=== PATIENT | male | born 1955 | race Caucasian/White ===

== ENCOUNTER 2020-06-20 10:27 | Inpatient (IN) | payer MEDICARE ==
[2020-06-15 14:11] LABS: BASOPHILS # (AUTO) 0.1 (0.0-0.1); BASOPHILS % 1.2 % (0.0-1.0); EOSINOPHILS # (AUTO) 0.2 (0.0-0.4); EOSINOPHILS % 2.2 % (0.0-6.0); HEMATOCRIT 36.8 % (38.2-49.6); HEMOGLOBIN 12.5 g/dL (14.0-18.0); LYMPHOCYTES # (AUTO) 0.6 (1.0-3.2); LYMPHOCYTES % 7.2 % (18.0-39.1); MEAN CORPUSCULAR HEMOGLOBIN 33.2 pg (28-32); MEAN CORPUSCULAR VOLUME 97.9 fL (81-99); MONOCYTES # (AUTO) 0.9 (0.2-0.8); NEUTROPHILS # (AUTO) 6.7 (2.1-6.9); PLATELET COUNT 170 x10e3/uL (140-360); RED BLOOD COUNT 3.76 x10e6/uL (4.3-5.7); RED CELL DISTRIBUTION WIDTH 12.7 % (11.7-14.4)
[2020-06-15 14:31] LABS: ALBUMIN 3.3 g/dL (3.5-5.0); ANION GAP 16.2 mmol/L (8-16); CREATININE, SERUM 2.27 mg/dL (0.72-1.25); POTASSIUM 4.2 mmol/L (3.5-5.1)
[~2020-06-20] VITALS: Ht 170.2 cm; Wt 81.6 kg
[2020-06-20] VITALS (11 sets, daily range): BP systolic 105–174; BP diastolic 76–114
[~2020-06-20 10:27] MED LIST: ATORVASTATIN CA20 MG PO; BENADRYL25 M1 PO; ENTRESTO 24 MG1 EACH PO; ESSIAC TONIC PO; GLIMEPIRIDE2 MG PO; MELATONIN3 M1 PO; METOPROLOL SUCC50 MG PO; TORSEMIDE20 MG PO; TURMERIC538 MG PO; VITAMIN C500 MG PO
[2020-06-20] MEDS ORDERED: DIPHENHYDRAMINE HCL 25 MG CAP ONE (10:54)
[2020-06-20] MEDS ORDERED: ALPRAZOLAM 0.5 MG TAB ONE (10:54)
[2020-06-20] MEDS ORDERED: SODIUM CHLORIDE 0.9% 1000ML 1,000 ML ONE ×2 (10:57→12:14)
[2020-06-20] MEDS ORDERED: MIDAZOLAM HCL 2 MG/2 ML VIAL ONE (12:13)
[2020-06-20] MEDS ORDERED: FENTANYL CITRATE/PF 100MCG/2 ML INJ ONE (12:14)
[2020-06-20] MEDS ORDERED: LIDOCAINE HCL 2% LOCAL 20 ML VIAL ONE (12:14)
[2020-06-20] MEDS ORDERED: IOPAMIDOL 370 MG/ML 200 ML INFUS..BTL INJ ONE (12:14)
[2020-06-20] MEDS ORDERED: HEPARIN SOD/SOD CHLORIDE 2,000 ML ONE (12:14)
[2020-06-20] MEDS ORDERED: ACETAMINOPHEN 325 MG TAB PO PRN (14:45)
[2020-06-20] MEDS ORDERED: ONDANSETRON HCL INJ 2MG/ML 2ML 2 MG/ML VIAL IV PRN (14:45)
[2020-06-20] MEDS ORDERED: HYDROCODONE/APAP 5MG-325MG TAB PO PRN (14:45)
[2020-06-20] MEDS ORDERED: MORPHINE SULFATE INJ 4 MG/ML INJ 1ML IV PRN (14:45)
[2020-06-20] MEDS ORDERED: GLIMEPIRIDE 2 MG TAB PO PRN (14:45)
[2020-06-20] MEDS ORDERED: HYDRALAZINE HCL 20 MG/ML VIAL ONE (15:17)
[2020-06-20] MEDS: METOPROLOL SUCCINATE 50 MG TAB XL PO SCH (20:45)
[2020-06-20] MEDS: MELATONIN 5 MG TABLET PO SCH (20:45)
[2020-06-20] MEDS: FUROSEMIDE INJ 10 MG/ML 4 ML VIAL IV SCH (20:45)
[2020-06-20] MEDS ORDERED: ZOLPIDEM TARTRATE 5 MG TAB PO PRN (21:00)
[2020-06-21] VITALS (14 sets, daily range): BP systolic 133–168; BP diastolic 83–105
[2020-06-21 05:40] LABS: BASOPHILS # (AUTO) 0.1 (0.0-0.1); BASOPHILS % 0.9 % (0.0-1.0); EOSINOPHILS # (AUTO) 0.2 (0.0-0.4); EOSINOPHILS % 2.4 % (0.0-6.0); HEMATOCRIT 35.9 % (38.2-49.6); HEMOGLOBIN 12.4 g/dL (14.0-18.0); LYMPHOCYTES # (AUTO) 0.5 (1.0-3.2); LYMPHOCYTES % 6.6 % (18.0-39.1); MEAN CORPUSCULAR HGB CONC 34.5 g/dL (31-35); MEAN CORPUSCULAR VOLUME 98.4 fL (81-99); MONOCYTES # (AUTO) 0.7 (0.2-0.8); MONOCYTES % 9.3 % (4.4-11.3); NEUTROPHILS # (AUTO) 6.1 (2.1-6.9); NEUTROPHILS % 80.4 % (38.7-80.0); PLATELET COUNT 147 x10e3/uL (140-360); RED BLOOD COUNT 3.65 x10e6/uL (4.3-5.7); RED CELL DISTRIBUTION WIDTH 12.8 % (11.7-14.4)
[2020-06-21 06:03] LABS: ALBUMIN 2.9 g/dL (3.5-5.0); ALBUMIN/GLOBULIN RATIO 0.9 (0.8-2.0); ANION GAP 14.6 mmol/L (8-16); CALCIUM 8.9 mg/dL (8.4-10.2); CHOL/HDL RATIO 1.9 (3.9-4.7); CREATININE, SERUM 2.11 mg/dL (0.72-1.25); POTASSIUM 3.6 mmol/L (3.5-5.1)
[2020-06-21] MEDS: FUROSEMIDE INJ 10 MG/ML 4 ML VIAL IV SCH ×3 (08:16→21:35)
[2020-06-21] MEDS: ATORVASTATIN 20 MG TAB PO SCH (08:16)
[2020-06-21] MEDS: ASCORBIC ACID 500 MG TAB PO SCH (08:17)
[2020-06-21] MEDS ORDERED: FENTANYL CITRATE/PF 100MCG/2 ML INJ ONE (12:21)
[2020-06-21] MEDS ORDERED: LIDOCAINE HCL 2% LOCAL 20 ML VIAL ONE (12:21)
[2020-06-21] MEDS ORDERED: MIDAZOLAM HCL 2 MG/2 ML VIAL ONE ×2 (12:21→13:10)
[2020-06-21] MEDS ORDERED: SODIUM CHLORIDE 0.9% 500ML 500 ML ONE (12:22)
[2020-06-21] MEDS ORDERED: VANCOMYCIN 1GM/NS 250 ML 500 ML ONE (12:22)
[2020-06-21] MEDS ORDERED: SODIUM CHLORIDE 0.9% 1000ML 2,000 ML ONE (12:22)
[2020-06-21] MEDS ORDERED: GENTAMICIN SULFATE 40 MG/ML 2 ML VIAL ONE (12:56)
[2020-06-21] MEDS: MELATONIN 5 MG TABLET PO SCH (21:35)
[2020-06-21] MEDS: METOPROLOL SUCCINATE 50 MG TAB XL PO SCH (21:36)
[2020-06-22 01:02] VITALS: BP 149/96
[2020-06-22 05:05] VITALS: BP 153/112
[2020-06-22 07:53] VITALS: BP 156/100
[2020-06-22 08:01] VITALS: BP 156/100
[2020-06-22] MEDS: ATORVASTATIN 20 MG TAB PO SCH (08:14)
[2020-06-22] MEDS: FUROSEMIDE INJ 10 MG/ML 4 ML VIAL IV SCH (08:14)
[2020-06-22] MEDS: ASCORBIC ACID 500 MG TAB PO SCH (08:14)
[2020-06-22 11:23] VITALS: BP 152/92
[2020-06-22 15:24] VITALS: BP 135/91
== END 2020-06-22 17:51 | disposition home or self-care (01) | DRG 222 ==
LOC: CATH LAB 10:27 → MED/SURG2 17:23
PROVIDERS: ADMIT Internal Medicine Interventional Cardiology; ATTEND Internal Medicine Interventional Cardiology
PROC: 4A023N7 Measurement of Cardiac Sampling and Pressure, Left Heart, Percutaneous Approach (ICD-10-PCS; principal; 2020-06-20)
PROC: B2111ZZ Fluoroscopy of Multiple Coronary Arteries using Low Osmolar Contrast (ICD-10-PCS; 2020-06-20)
PROC: 0JH608Z Insertion of Defibrillator Generator into Chest Subcutaneous Tissue and Fascia, Open Approach (ICD-10-PCS; 2020-06-21)
PROC: 02HK3KZ Insertion of Defibrillator Lead into Right Ventricle, Percutaneous Approach (ICD-10-PCS; 2020-06-21)
DX: I11.0 Hypertensive heart disease with heart failure (principal); J96.01 Acute respiratory failure with hypoxia; I25.110 Atherosclerotic heart disease of native coronary artery with unstable angina pectoris; E11.9 Type 2 diabetes mellitus without complications; E66.9 Obesity, unspecified; I50.43 Acute on chronic combined systolic (congestive) and diastolic (congestive) heart failure; Z68.28 Body mass index [BMI] 28.0-28.9, adult; Z79.84 Long term (current) use of oral hypoglycemic drugs
CPT/HCPCS: 33249; 36415; 71045; 80053; 80061; 82948; 85025; 93306; 93454; 99152; 99153; C1722; C1777; C1887; J0360; J1580; J1940; J2001; J2250; J3010; J3370; J7030; J7040; Q9967; U0002

== ENCOUNTER → 2020-08-10 | Outpatient (CLI) | payer MEDICARE ==
[~2020-08-10] MED LIST changes: +FUROSEMIDE40 MG PO; +SODIUM CHLORIDE1 GM PO
[2020-08-10 12:43] LABS: BASOPHILS # (AUTO) 0.1 (0.0-0.1); BASOPHILS % 1.5 % (0.0-1.0); EOSINOPHILS # (AUTO) 0.2 (0.0-0.4); EOSINOPHILS % 4.1 % (0.0-6.0); HEMATOCRIT 30.3 % (38.2-49.6); HEMOGLOBIN 10.7 g/dL (14.0-18.0); LYMPHOCYTES # (AUTO) 0.5 (1.0-3.2); LYMPHOCYTES % 9.9 % (18.0-39.1); MEAN CORPUSCULAR HEMOGLOBIN 33.9 pg (28-32); MEAN CORPUSCULAR HGB CONC 35.3 g/dL (31-35); MEAN CORPUSCULAR VOLUME 95.9 fL (81-99); MONOCYTES # (AUTO) 0.5 (0.2-0.8); MONOCYTES % 10.3 % (4.4-11.3); NEUTROPHILS # (AUTO) 3.4 (2.1-6.9); NEUTROPHILS % 73.6 % (38.7-80.0); PLATELET COUNT 130 x10e3/uL (140-360); RED BLOOD COUNT 3.16 x10e6/uL (4.3-5.7); RED CELL DISTRIBUTION WIDTH 14.2 % (11.7-14.4)
[2020-08-10 13:07] LABS: ALBUMIN 3.6 g/dL (3.5-5.0); ANION GAP 16.2 mmol/L (8-16); CALCIUM 8.9 mg/dL (8.4-10.2); CREATININE, SERUM 3.5 mg/dL (0.72-1.25); POTASSIUM 4.2 mmol/L (3.5-5.1)
== END ==
LOC: DX 15:47 → EDSTATUS 08-15 13:00
PROVIDERS: ATTEND Internal Medicine Interventional Cardiology
DX: Z01.812 Encounter for preprocedural laboratory examination (principal); Z20.822 Contact with and (suspected) exposure to COVID-19; I25.10 Atherosclerotic heart disease of native coronary artery without angina pectoris
CPT/HCPCS: 36415; 80053; 83880; 85025; U0002

== ENCOUNTER → 2020-08-31 | Outpatient (CLI) | payer MEDICARE ==
[~2020-08-31] MED LIST changes: +COLACE100 MG PO; +Collagenase TP; +FLOMAX0.4 MG PO; +TYLENOL # 31 EA PO
[2020-08-31 12:09] LABS: BASOPHILS # (AUTO) 0.1 (0.0-0.1); BASOPHILS % 1.1 % (0.0-1.0); EOSINOPHILS # (AUTO) 0.2 (0.0-0.4); EOSINOPHILS % 3.5 % (0.0-6.0); HEMATOCRIT 28.3 % (38.2-49.6); HEMOGLOBIN 10.3 g/dL (14.0-18.0); LYMPHOCYTES # (AUTO) 0.4 (1.0-3.2); LYMPHOCYTES % 6.6 % (18.0-39.1); MEAN CORPUSCULAR HEMOGLOBIN 34.3 pg (28-32); MEAN CORPUSCULAR HGB CONC 36.4 g/dL (31-35); MEAN CORPUSCULAR VOLUME 94.3 fL (81-99); MONOCYTES # (AUTO) 0.7 (0.2-0.8); MONOCYTES % 13.2 % (4.4-11.3); NEUTROPHILS # (AUTO) 4.1 (2.1-6.9); NEUTROPHILS % 75.2 % (38.7-80.0); PLATELET COUNT 184 x10e3/uL (140-360); RED CELL DISTRIBUTION WIDTH 14.6 % (11.7-14.4)
[2020-08-31 12:31] LABS: ALBUMIN 3.8 g/dL (3.5-5.0); ALBUMIN/GLOBULIN RATIO 1.1 (0.8-2.0); ANION GAP 16.8 mmol/L (8-16); CREATININE, SERUM 2.23 mg/dL (0.72-1.25); POTASSIUM 3.8 mmol/L (3.5-5.1)
== END | disposition home or self-care (01) ==
LOC: LAB 14:23 → EDSTATUS 09-05 15:00
PROVIDERS: ATTEND Internal Medicine Interventional Cardiology
DX: Z01.812 Encounter for preprocedural laboratory examination (principal); I25.10 Atherosclerotic heart disease of native coronary artery without angina pectoris
CPT/HCPCS: 36415; 80053; 83880; 85025

== ENCOUNTER 2020-09-05 17:25 | Inpatient (IN) | payer MEDICARE ==
[~2020-09-05] VITALS: Ht 170.2 cm; Wt 89.5 kg
[~2020-09-05 17:25] MED LIST changes: -COLACE100 MG PO; -Collagenase TP; -FLOMAX0.4 MG PO; -FUROSEMIDE40 MG PO; -SODIUM CHLORIDE1 GM PO; -TYLENOL # 31 EA PO
[2020-09-05] MEDS ORDERED: ASPIRIN 81 MG CHEW TAB PO ONE (18:45)
[2020-09-05 19:00] LABS: BASOPHILS # (AUTO) 0.1 (0.0-0.1); BASOPHILS % 1.6 % (0.0-1.0); EOSINOPHILS # (AUTO) 0.1 (0.0-0.4); EOSINOPHILS % 2.4 % (0.0-6.0); HEMATOCRIT 27.3 % (38.2-49.6); HEMOGLOBIN 9.2 g/dL (14.0-18.0); LYMPHOCYTES # (AUTO) 0.4 (1.0-3.2); LYMPHOCYTES % 7.5 % (18.0-39.1); MEAN CORPUSCULAR HEMOGLOBIN 34.1 pg (28-32); MEAN CORPUSCULAR HGB CONC 33.7 g/dL (31-35); MEAN CORPUSCULAR VOLUME 101.1 fL (81-99); MONOCYTES # (AUTO) 0.6 (0.2-0.8); MONOCYTES % 10.7 % (4.4-11.3); NEUTROPHILS # (AUTO) 4.5 (2.1-6.9); NEUTROPHILS % 77.3 % (38.7-80.0); PLATELET COUNT 164 x10e3/uL (140-360); RED CELL DISTRIBUTION WIDTH 15.6 % (11.7-14.4)
[2020-09-05 19:24] LABS: ALBUMIN 3.9 g/dL (3.5-5.0); ALBUMIN/GLOBULIN RATIO 1.2 (0.8-2.0); ANION GAP 17.9 mmol/L (8-16); CALCIUM 9.6 mg/dL (8.4-10.2); CREATININE, SERUM 2.98 mg/dL (0.72-1.25); POTASSIUM 3.9 mmol/L (3.5-5.1)
[2020-09-05 19:31] LABS: CREATINE KINASE MB 8.2 ng/mL (0-5.0)
[2020-09-05] MEDS ORDERED: ONDANSETRON HCL INJ 2MG/ML 2ML 2 MG/ML VIAL IV PRN (21:30)
[2020-09-05] MEDS: FUROSEMIDE INJ 10 MG/ML 4 ML VIAL IV SCH (23:04)
[2020-09-06] VITALS (9 sets, daily range): BP systolic 122–151; BP diastolic 74–102
[2020-09-06] MEDS ORDERED: SODIUM CHLORIDE1 GM PO (00:49)
[2020-09-06] MEDS ORDERED: FUROSEMIDE40 MG PO (00:49)
[2020-09-06] MEDS: TRAMADOL HCL 50 MG TAB PO PRN ×3 (01:11→16:27)
[2020-09-06] MEDS ORDERED: MELATONIN 5 MG TABLET PO PRN (01:30)
[2020-09-06 05:21] LABS: BASOPHILS # (AUTO) 0.1 (0.0-0.1); BASOPHILS % 1.6 % (0.0-1.0); EOSINOPHILS # (AUTO) 0.1 (0.0-0.4); EOSINOPHILS % 2.3 % (0.0-6.0); HEMATOCRIT 26.7 % (38.2-49.6); HEMOGLOBIN 9.2 g/dL (14.0-18.0); LYMPHOCYTES # (AUTO) 0.4 (1.0-3.2); LYMPHOCYTES % 6.6 % (18.0-39.1); MEAN CORPUSCULAR HEMOGLOBIN 34.5 pg (28-32); MEAN CORPUSCULAR HGB CONC 34.5 g/dL (31-35); MONOCYTES # (AUTO) 0.6 (0.2-0.8); MONOCYTES % 10.5 % (4.4-11.3); NEUTROPHILS # (AUTO) 4.4 (2.1-6.9); NEUTROPHILS % 78.5 % (38.7-80.0); PLATELET COUNT 144 x10e3/uL (140-360); RED BLOOD COUNT 2.67 x10e6/uL (4.3-5.7); RED CELL DISTRIBUTION WIDTH 15.2 % (11.7-14.4)
[2020-09-06 05:48] LABS: ALBUMIN 3.6 g/dL (3.5-5.0); ALBUMIN/GLOBULIN RATIO 1.1 (0.8-2.0); ANION GAP 15.7 mmol/L (8-16); CALCIUM 9.2 mg/dL (8.4-10.2); CREATININE, SERUM 2.96 mg/dL (0.72-1.25); POTASSIUM 3.7 mmol/L (3.5-5.1)
[2020-09-06] MEDS: INSULIN REGULAR, HUMAN 100 UNIT/1 ML SQ SCH ×4 (07:30→21:00)
[2020-09-06] MEDS: FUROSEMIDE INJ 10 MG/ML 4 ML VIAL IV SCH ×2 (10:00→21:59)
[2020-09-06] MEDS ORDERED: HYDRALAZINE HCL 20 MG/ML VIAL IV PRN (16:30)
[2020-09-06] MEDS ORDERED: GLIMEPIRIDE 2 MG TAB PO SCH (16:45)
[2020-09-06] MEDS: MELATONIN 5 MG TABLET PO SCH (21:59)
[2020-09-06] MEDS: DIPHENHYDRAMINE HCL 25 MG CAP PO SCH (21:59)
[2020-09-06] MEDS: SODIUM CHLORIDE 1 GM TAB PO SCH (22:00)
[2020-09-06] MEDS: METOPROLOL SUCCINATE 50 MG TAB XL PO SCH (22:00)
[2020-09-07] VITALS (8 sets, daily range): BP systolic 118–142; BP diastolic 62–90
[2020-09-07 06:13] LABS: BASOPHILS # (AUTO) 0.1 (0.0-0.1); BASOPHILS % 1.3 % (0.0-1.0); EOSINOPHILS # (AUTO) 0.2 (0.0-0.4); EOSINOPHILS % 2.9 % (0.0-6.0); HEMATOCRIT 28.3 % (38.2-49.6); HEMOGLOBIN 9.4 g/dL (14.0-18.0); LYMPHOCYTES # (AUTO) 0.4 (1.0-3.2); LYMPHOCYTES % 5.8 % (18.0-39.1); MEAN CORPUSCULAR HEMOGLOBIN 34.6 pg (28-32); MEAN CORPUSCULAR HGB CONC 33.2 g/dL (31-35); MONOCYTES # (AUTO) 0.7 (0.2-0.8); MONOCYTES % 9.5 % (4.4-11.3); NEUTROPHILS # (AUTO) 5.6 (2.1-6.9); NEUTROPHILS % 80.1 % (38.7-80.0); PLATELET COUNT 148 x10e3/uL (140-360); RED BLOOD COUNT 2.72 x10e6/uL (4.3-5.7); RED CELL DISTRIBUTION WIDTH 15.5 % (11.7-14.4)
[2020-09-07 06:36] LABS: CALCIUM 9.1 mg/dL (8.4-10.2); CREATININE, SERUM 3.15 mg/dL (0.72-1.25); MAGNESIUM 2.3 MG/DL (1.3-2.1); PHOSPHORUS 4.2 MG/DL (2.3-4.7)
[2020-09-07 06:57] LABS: THYROID STIMULATING HORMONE 27.517 uIU/mL (0.350-4.940)
[2020-09-07] MEDS: INSULIN REGULAR, HUMAN 100 UNIT/1 ML SQ SCH ×4 (07:30→21:00)
[2020-09-07] MEDS: COLLAGENASE 5 GM TUBE TP SCH (08:50)
[2020-09-07] MEDS: TRAMADOL HCL 50 MG TAB PO PRN ×4 (08:50→18:34)
[2020-09-07] MEDS: FUROSEMIDE INJ 10 MG/ML 4 ML VIAL IV SCH ×2 (08:50→22:00)
[2020-09-07] MEDS: ATORVASTATIN 20 MG TAB PO SCH (08:50)
[2020-09-07] MEDS: SODIUM CHLORIDE 1 GM TAB PO SCH ×3 (08:50→22:06)
[2020-09-07] MEDS: BALSAM PERU/CASTOR OIL 60 GM OINT...G. TP SCH (08:50)
[2020-09-07] MEDS ORDERED: ACETAMINOPHEN/CODEINE 300MG - 30MG TAB PO ONE (11:00)
[2020-09-07] MEDS ORDERED: FUROSEMIDE INJ 10 MG/ML 4 ML VIAL IV ONE (17:00)
[2020-09-07] MEDS: ACETAMINOPHEN/CODEINE 300MG - 30MG TAB PO PRN (20:14)
[2020-09-07] MEDS: MELATONIN 5 MG TABLET PO SCH (22:06)
[2020-09-07] MEDS: DIPHENHYDRAMINE HCL 25 MG CAP PO SCH (22:06)
[2020-09-07] MEDS: METOPROLOL SUCCINATE 50 MG TAB XL PO SCH (22:07)
[2020-09-08] VITALS (8 sets, daily range): BP systolic 116–144; BP diastolic 80–98
[2020-09-08 06:14] LABS: BASOPHILS # (AUTO) 0.1 (0.0-0.1); BASOPHILS % 1.6 % (0.0-1.0); EOSINOPHILS # (AUTO) 0.3 (0.0-0.4); EOSINOPHILS % 4.6 % (0.0-6.0); HEMATOCRIT 28.9 % (38.2-49.6); HEMOGLOBIN 9.7 g/dL (14.0-18.0); LYMPHOCYTES # (AUTO) 0.6 (1.0-3.2); MEAN CORPUSCULAR HEMOGLOBIN 35.1 pg (28-32); MEAN CORPUSCULAR HGB CONC 33.6 g/dL (31-35); MEAN CORPUSCULAR VOLUME 104.7 fL (81-99); MONOCYTES # (AUTO) 0.7 (0.2-0.8); MONOCYTES % 10.9 % (4.4-11.3); NEUTROPHILS # (AUTO) 4.9 (2.1-6.9); NEUTROPHILS % 73.2 % (38.7-80.0); PLATELET COUNT 153 x10e3/uL (140-360); RED BLOOD COUNT 2.76 x10e6/uL (4.3-5.7)
[2020-09-08 06:40] LABS: ANION GAP 17.3 mmol/L (8-16); CALCIUM 9.5 mg/dL (8.4-10.2); CREATININE, SERUM 3.86 mg/dL (0.72-1.25); MAGNESIUM 2.3 MG/DL (1.3-2.1); POTASSIUM 4.3 mmol/L (3.5-5.1)
[2020-09-08] MEDS: INSULIN REGULAR, HUMAN 100 UNIT/1 ML SQ SCH ×4 (07:30→20:35)
[2020-09-08] MEDS: FUROSEMIDE INJ 10 MG/ML 4 ML VIAL IV SCH (09:02)
[2020-09-08] MEDS: ATORVASTATIN 20 MG TAB PO SCH (09:02)
[2020-09-08] MEDS: BALSAM PERU/CASTOR OIL 60 GM OINT...G. TP SCH (09:04)
[2020-09-08] MEDS: SODIUM CHLORIDE 1 GM TAB PO SCH ×3 (09:05→21:20)
[2020-09-08] MEDS: COLLAGENASE 5 GM TUBE TP SCH (09:05)
[2020-09-08] MEDS: TRAMADOL HCL 50 MG TAB PO PRN ×2 (10:29→17:55)
[2020-09-08] MEDS ORDERED: ONDANSETRON HCL 4 MG ORAL DISINTEGRATING TAB PO PRN (13:30)
[2020-09-08] MEDS ORDERED: SODIUM CHLORIDE 0.9% 500ML 500 ML ONE (13:39)
[2020-09-08] MEDS: DEXTROSE 50% SYRINGE 50 ML IV PRN (14:07)
[2020-09-08] MEDS: MELATONIN 5 MG TABLET PO SCH (21:20)
[2020-09-08] MEDS: METOPROLOL SUCCINATE 50 MG TAB XL PO SCH (21:20)
[2020-09-08] MEDS: DIPHENHYDRAMINE HCL 25 MG CAP PO SCH (21:20)
[2020-09-09] VITALS (8 sets, daily range): BP systolic 131–160; BP diastolic 77–95
[2020-09-09 05:50] LABS: ANION GAP 23.1 mmol/L (8-16); CALCIUM 9.2 mg/dL (8.4-10.2); CREATININE, SERUM 4.01 mg/dL (0.72-1.25); POTASSIUM 5.1 mmol/L (3.5-5.1)
[2020-09-09] MEDS: INSULIN REGULAR, HUMAN 100 UNIT/1 ML SQ SCH ×4 (07:30→20:44)
[2020-09-09] MEDS: ATORVASTATIN 20 MG TAB PO SCH (09:00)
[2020-09-09] MEDS: COLLAGENASE 5 GM TUBE TP SCH (09:00)
[2020-09-09] MEDS: SODIUM CHLORIDE 1 GM TAB PO SCH ×3 (09:00→21:05)
[2020-09-09] MEDS: BALSAM PERU/CASTOR OIL 60 GM OINT...G. TP SCH (09:00)
[2020-09-09] MEDS: TRAMADOL HCL 50 MG TAB PO PRN (15:00)
[2020-09-09] MEDS ORDERED: ACETYLCYSTEINE 20% INHAL SOLN 30 ML VIAL PO SCH (15:30)
[2020-09-09] MEDS: ACETYLCYSTEINE 200 MG/ML 4ML VIAL PO SCH (16:53)
[2020-09-09 18:17] LABS: INR 1.23; PROTHROMBIN TIME 16.2 seconds (11.9-14.5)
[2020-09-09 18:18] LABS: PARTIAL THROMBOPLASTIN TIME 41.4 seconds (23.8-35.5)
[2020-09-09] MEDS: METOPROLOL SUCCINATE 50 MG TAB XL PO SCH (20:44)
[2020-09-09] MEDS: MELATONIN 5 MG TABLET PO SCH (21:05)
[2020-09-09] MEDS: DIPHENHYDRAMINE HCL 25 MG CAP PO SCH (21:05)
[2020-09-10] VITALS (9 sets, daily range): BP systolic 136–167; BP diastolic 77–99
[2020-09-10] MEDS: ACETYLCYSTEINE 200 MG/ML 4ML VIAL PO SCH (04:23)
[2020-09-10 06:26] LABS: BASOPHILS # (AUTO) 0.1 (0.0-0.1); BASOPHILS % 1.1 % (0.0-1.0); EOSINOPHILS # (AUTO) 0.4 (0.0-0.4); EOSINOPHILS % 5.1 % (0.0-6.0); HEMATOCRIT 28.9 % (38.2-49.6); LYMPHOCYTES # (AUTO) 0.5 (1.0-3.2); LYMPHOCYTES % 6.7 % (18.0-39.1); MEAN CORPUSCULAR HEMOGLOBIN 34.2 pg (28-32); MEAN CORPUSCULAR HGB CONC 34.6 g/dL (31-35); MONOCYTES # (AUTO) 0.6 (0.2-0.8); MONOCYTES % 8.3 % (4.4-11.3); NEUTROPHILS # (AUTO) 5.9 (2.1-6.9); PLATELET COUNT 166 x10e3/uL (140-360); RED BLOOD COUNT 2.92 x10e6/uL (4.3-5.7); RED CELL DISTRIBUTION WIDTH 14.4 % (11.7-14.4)
[2020-09-10 07:29] LABS: ANION GAP 21.3 mmol/L (8-16); CALCIUM 9.2 mg/dL (8.4-10.2); CREATININE, SERUM 3.81 mg/dL (0.72-1.25); POTASSIUM 4.3 mmol/L (3.5-5.1)
[2020-09-10] MEDS: INSULIN REGULAR, HUMAN 100 UNIT/1 ML SQ SCH ×4 (07:30→20:42)
[2020-09-10 08:49] LABS: BAND NEUTROPHILS % (MANUAL) 2 %; LYMPHOCYTES % (MANUAL) 5 % (19-48); MONOCYTES % (MANUAL) 7 % (3.4-9.0); NEUTROPHILS % (MANUAL) 86 % (40-74)
[2020-09-10] MEDS: COLLAGENASE 5 GM TUBE TP SCH (09:00)
[2020-09-10] MEDS: BALSAM PERU/CASTOR OIL 60 GM OINT...G. TP SCH (09:00)
[2020-09-10] MEDS: SODIUM CHLORIDE 1 GM TAB PO SCH ×3 (09:00→21:06)
[2020-09-10] MEDS: ATORVASTATIN 20 MG TAB PO SCH (09:00)
[2020-09-10] MEDS ORDERED: LIDOCAINE HCL 1% LOCAL INJ 20 ML VIAL ONE (09:30)
[2020-09-10] MEDS: TRAMADOL HCL 50 MG TAB PO PRN ×2 (11:25→20:08)
[2020-09-10] MEDS ORDERED: SODIUM CHLORIDE 0.9% 50ML 50 ML ONE (12:17)
[2020-09-10] MEDS ORDERED: IOPAMIDOL 370 MG/ML 200 ML INFUS..BTL INJ ONE (12:17)
[2020-09-10] MEDS ORDERED: SODIUM CHLORIDE 0.9% 1000ML 1,000 ML ONE (13:16)
[2020-09-10] MEDS ORDERED: HEPARIN SOD (PORCINE) 1000 UNIT/ML SDV IV PRN (13:30)
[2020-09-10] MEDS ORDERED: SODIUM CHLORIDE 0.9% 1000ML 2,000 ML IV PRN (13:30)
[2020-09-10] MEDS ORDERED: MANNITOL 25% 12.5GM/50 ML VIAL IV PRN (13:30)
[2020-09-10] MEDS ORDERED: SODIUM CHLORIDE 0.9% 250ML 500 ML IV PRN (13:30)
[2020-09-10] MEDS ORDERED: MANNITOL 25% 12.5GM/50ML 100 ML ONE (13:31)
[2020-09-10 18:08] LABS: CLARITY,URINE CLEAR (CLEAR); COLOR,URINE YELLOW (YELLOW)
[2020-09-10 18:09] LABS: LEUKOCYTE ESTERASE ,URINE TRACE (NEGATIVE)
[2020-09-10 18:10] LABS: KETONES,URINE NEGATIVE (NEGATIVE); NITRITE,URINE NEGATIVE (NEGATIVE); PROTEIN,URINE DIPSTICK 2+ (NEGATIVE); URINE UROBILINOGEN 0.2 mg/dL (0.2 - 1)
[2020-09-10 18:25] LABS: BACTERIA,URINE FEW /HPF; WBC,URINE (MAN) 0-5 /HPF (0-5)
[2020-09-10] MEDS: MELATONIN 5 MG TABLET PO SCH (21:06)
[2020-09-10] MEDS: DIPHENHYDRAMINE HCL 25 MG CAP PO SCH (21:06)
[2020-09-10] MEDS: METOPROLOL SUCCINATE 50 MG TAB XL PO SCH (21:07)
[2020-09-11] VITALS (8 sets, daily range): BP systolic 115–142; BP diastolic 62–81
[2020-09-11] MEDS: TRAMADOL HCL 50 MG TAB PO PRN ×3 (01:55→14:14)
[2020-09-11 05:58] LABS: CALCIUM 8.8 mg/dL (8.4-10.2); CREATININE, SERUM 2.99 mg/dL (0.72-1.25)
[2020-09-11] MEDS: INSULIN REGULAR, HUMAN 100 UNIT/1 ML SQ SCH ×4 (07:30→20:28)
[2020-09-11] MEDS ORDERED: GLIMEPIRIDE 2 MG TAB PO SCH (07:30)
[2020-09-11] MEDS: SODIUM CHLORIDE 1 GM TAB PO SCH ×3 (08:24→21:19)
[2020-09-11] MEDS: ATORVASTATIN 20 MG TAB PO SCH (08:24)
[2020-09-11] MEDS: BALSAM PERU/CASTOR OIL 60 GM OINT...G. TP SCH (18:04)
[2020-09-11] MEDS: COLLAGENASE 5 GM TUBE TP SCH (18:04)
[2020-09-11] MEDS: DIPHENHYDRAMINE HCL 25 MG CAP PO SCH (21:19)
[2020-09-11] MEDS: METOPROLOL SUCCINATE 50 MG TAB XL PO SCH (21:19)
[2020-09-11] MEDS: MELATONIN 5 MG TABLET PO SCH (21:19)
[2020-09-12] VITALS (8 sets, daily range): BP systolic 126–136; BP diastolic 68–92
[2020-09-12 05:31] LABS: BASOPHILS # (AUTO) 0.1 (0.0-0.1); BASOPHILS % 0.7 % (0.0-1.0); EOSINOPHILS # (AUTO) 0.3 (0.0-0.4); EOSINOPHILS % 3.8 % (0.0-6.0); HEMATOCRIT 27.7 % (38.2-49.6); HEMOGLOBIN 9.3 g/dL (14.0-18.0); LYMPHOCYTES # (AUTO) 0.5 (1.0-3.2); LYMPHOCYTES % 6.6 % (18.0-39.1); MEAN CORPUSCULAR HEMOGLOBIN 34.1 pg (28-32); MEAN CORPUSCULAR HGB CONC 33.6 g/dL (31-35); MEAN CORPUSCULAR VOLUME 101.5 fL (81-99); MONOCYTES # (AUTO) 0.8 (0.2-0.8); NEUTROPHILS # (AUTO) 5.2 (2.1-6.9); NEUTROPHILS % 76.2 % (38.7-80.0); PLATELET COUNT 131 x10e3/uL (140-360); RED BLOOD COUNT 2.73 x10e6/uL (4.3-5.7)
[2020-09-12 05:57] LABS: CALCIUM 8.8 mg/dL (8.4-10.2); CREATININE, SERUM 2.39 mg/dL (0.72-1.25)
[2020-09-12] MEDS: INSULIN REGULAR, HUMAN 100 UNIT/1 ML SQ SCH ×4 (07:30→20:21)
[2020-09-12] MEDS: SODIUM CHLORIDE 1 GM TAB PO SCH ×3 (08:58→21:30)
[2020-09-12] MEDS: ATORVASTATIN 20 MG TAB PO SCH (08:58)
[2020-09-12] MEDS: TRAMADOL HCL 50 MG TAB PO PRN ×3 (08:59→23:02)
[2020-09-12] MEDS: BALSAM PERU/CASTOR OIL 60 GM OINT...G. TP SCH (08:59)
[2020-09-12] MEDS: COLLAGENASE 5 GM TUBE TP SCH (08:59)
[2020-09-12] MEDS: METOPROLOL SUCCINATE 50 MG TAB XL PO SCH (21:30)
[2020-09-12] MEDS: DIPHENHYDRAMINE HCL 25 MG CAP PO SCH (21:30)
[2020-09-12] MEDS: MELATONIN 5 MG TABLET PO SCH (21:30)
[2020-09-13] VITALS (9 sets, daily range): BP systolic 109–160; BP diastolic 72–108
[2020-09-13 06:01] LABS: ANION GAP 15.4 mmol/L (8-16); CALCIUM 9.1 mg/dL (8.4-10.2); CREATININE, SERUM 3.03 mg/dL (0.72-1.25); POTASSIUM 4.4 mmol/L (3.5-5.1)
[2020-09-13] MEDS: INSULIN REGULAR, HUMAN 100 UNIT/1 ML SQ SCH ×4 (07:30→20:36)
[2020-09-13] MEDS: SODIUM CHLORIDE 1 GM TAB PO SCH ×3 (09:00→20:40)
[2020-09-13] MEDS: ATORVASTATIN 20 MG TAB PO SCH (09:00)
[2020-09-13] MEDS: COLLAGENASE 5 GM TUBE TP SCH (09:00)
[2020-09-13] MEDS: PANTOPRAZOLE SOD 40 MG TABEC PO SCH (09:00)
[2020-09-13] MEDS: BALSAM PERU/CASTOR OIL 60 GM OINT...G. TP SCH (09:00)
[2020-09-13] MEDS: ACETAMINOPHEN/CODEINE 300MG - 30MG TAB PO PRN ×3 (09:32→22:53)
[2020-09-13] MEDS ORDERED: HEPARIN SOD (PORCINE) 1000 UNIT/ML SDV IV PRN (13:45)
[2020-09-13] MEDS: MELATONIN 5 MG TABLET PO SCH (20:40)
[2020-09-13] MEDS: DIPHENHYDRAMINE HCL 25 MG CAP PO SCH (20:40)
[2020-09-13] MEDS: METOPROLOL SUCCINATE 50 MG TAB XL PO SCH (20:41)
[2020-09-14 05:04] LABS: ANION GAP 14.9 mmol/L (8-16); CREATININE, SERUM 2.35 mg/dL (0.72-1.25); POTASSIUM 3.9 mmol/L (3.5-5.1)
[2020-09-14 06:10] VITALS: BP 129/77
[2020-09-14] MEDS: INSULIN REGULAR, HUMAN 100 UNIT/1 ML SQ SCH ×4 (07:30→20:31)
[2020-09-14 07:57] VITALS: BP 144/85
[2020-09-14] MEDS: ATORVASTATIN 20 MG TAB PO SCH (09:00)
[2020-09-14] MEDS: PANTOPRAZOLE SOD 40 MG TABEC PO SCH (09:00)
[2020-09-14] MEDS: SODIUM CHLORIDE 1 GM TAB PO SCH ×3 (09:00→21:25)
[2020-09-14] MEDS: COLLAGENASE 5 GM TUBE TP SCH (09:00)
[2020-09-14] MEDS: BALSAM PERU/CASTOR OIL 60 GM OINT...G. TP SCH (09:00)
[2020-09-14 09:03] VITALS: BP 144/85
[2020-09-14] MEDS: POLYETHYLENE GLYCOL 3350 17 GM PACK PO SCH (09:45)
[2020-09-14] MEDS: ACETAMINOPHEN/CODEINE 300MG - 30MG TAB PO PRN ×2 (10:26→21:40)
[2020-09-14 11:42] VITALS: BP 136/80
[2020-09-14 11:54] LABS: CLARITY,URINE CLOUDY (CLEAR); COLOR,URINE AMBER (YELLOW); KETONES,URINE 1+ (NEGATIVE); LEUKOCYTE ESTERASE ,URINE SMALL (NEGATIVE); NITRITE,URINE NEGATIVE (NEGATIVE); PROTEIN,URINE DIPSTICK >=300 (NEGATIVE); URINE UROBILINOGEN 1 mg/dL (0.2 - 1)
[2020-09-14 11:55] LABS: BACTERIA,URINE MODERATE /HPF; RBC,URINE >50 /HPF (0-5)
[2020-09-14 14:46] LABS: FREE T4 (FREE THYROXINE) 0.8 ng/dL (0.8-1.8); THYROID STIMULATING HORMONE 33.501 uIU/mL (0.350-4.940)
[2020-09-14 15:46] VITALS: BP 128/86
[2020-09-14 20:00] VITALS: BP_SYST 149; BP_DIAS 63; BP_DIAS 83
[2020-09-14] MEDS: DIPHENHYDRAMINE HCL 25 MG CAP PO SCH (21:25)
[2020-09-14] MEDS: MELATONIN 5 MG TABLET PO SCH (21:25)
[2020-09-14] MEDS: METOPROLOL SUCCINATE 50 MG TAB XL PO SCH (21:26)
[2020-09-15] VITALS (8 sets, daily range): BP systolic 118–148; BP diastolic 60–89
[2020-09-15 05:05] LABS: BASOPHILS # (AUTO) 0.1 (0.0-0.1); BASOPHILS % 0.7 % (0.0-1.0); EOSINOPHILS # (AUTO) 0.5 (0.0-0.4); EOSINOPHILS % 6.5 % (0.0-6.0); HEMATOCRIT 25.3 % (38.2-49.6); HEMOGLOBIN 8.4 g/dL (14.0-18.0); LYMPHOCYTES # (AUTO) 0.5 (1.0-3.2); LYMPHOCYTES % 6.9 % (18.0-39.1); MEAN CORPUSCULAR HEMOGLOBIN 33.7 pg (28-32); MEAN CORPUSCULAR HGB CONC 33.2 g/dL (31-35); MEAN CORPUSCULAR VOLUME 101.6 fL (81-99); MONOCYTES # (AUTO) 0.8 (0.2-0.8); MONOCYTES % 11.4 % (4.4-11.3); NEUTROPHILS # (AUTO) 5.1 (2.1-6.9); NEUTROPHILS % 73.6 % (38.7-80.0); PLATELET COUNT 129 x10e3/uL (140-360); RED BLOOD COUNT 2.49 x10e6/uL (4.3-5.7); RED CELL DISTRIBUTION WIDTH 14.7 % (11.7-14.4)
[2020-09-15 05:20] LABS: ANION GAP 15.6 mmol/L (8-16); CREATININE, SERUM 2.44 mg/dL (0.72-1.25); POTASSIUM 3.6 mmol/L (3.5-5.1)
[2020-09-15] MEDS: INSULIN REGULAR, HUMAN 100 UNIT/1 ML SQ SCH ×4 (07:30→21:00)
[2020-09-15] MEDS: SODIUM CHLORIDE 1 GM TAB PO SCH ×3 (08:09→21:18)
[2020-09-15] MEDS: PANTOPRAZOLE SOD 40 MG TABEC PO SCH ×2 (09:00→17:34)
[2020-09-15] MEDS: ATORVASTATIN 20 MG TAB PO SCH (09:00)
[2020-09-15] MEDS: POLYETHYLENE GLYCOL 3350 17 GM PACK PO SCH ×2 (09:00→17:34)
[2020-09-15] MEDS: COLLAGENASE 5 GM TUBE TP SCH (10:00)
[2020-09-15] MEDS: BALSAM PERU/CASTOR OIL 60 GM OINT...G. TP SCH (10:00)
[2020-09-15] MEDS ORDERED: SODIUM CHLORIDE 0.9% 250ML 250 ML ONE ×2 (12:49→15:46)
[2020-09-15] MEDS: CEFTRIAXONE 1 GM in SODIUM CHLORIDE 0.9% 50ML 50 ML IV SCH (13:25)
[2020-09-15] MEDS ORDERED: MIDAZOLAM HCL 2 MG/2 ML VIAL ONE (15:27)
[2020-09-15] MEDS ORDERED: FENTANYL CITRATE/PF 100MCG/2 ML INJ ONE (15:28)
[2020-09-15] MEDS ORDERED: CEFAZOLIN SOD 1 GM/NS 50ML 50 ML IV ONE (15:28)
[2020-09-15] MEDS ORDERED: LIDOCAINE HCL 1% LOCAL INJ 20 ML VIAL ONE (15:46)
[2020-09-15] MEDS ORDERED: HEPARIN SOD (PORCINE) 1000 UNIT/ML SDV ONE (16:23)
[2020-09-15] MEDS: DOCUSATE SODIUM 100 MG CAP PO SCH ×2 (17:33→17:36)
[2020-09-15] MEDS: MELATONIN 5 MG TABLET PO SCH (21:10)
[2020-09-15] MEDS: DIPHENHYDRAMINE HCL 25 MG CAP PO SCH (21:18)
[2020-09-15] MEDS: METOPROLOL SUCCINATE 50 MG TAB XL PO SCH (21:18)
[2020-09-15] MEDS: ACETAMINOPHEN/CODEINE 300MG - 30MG TAB PO PRN (23:31)
[2020-09-16 01:30] VITALS: BP 123/77
[2020-09-16 06:27] VITALS: BP 139/78
[2020-09-16] MEDS ORDERED: TYLENOL # 31 EA PO (07:13)
[2020-09-16] MEDS ORDERED: Collagenase TP (07:13)
[2020-09-16] MEDS ORDERED: COLACE100 MG PO (07:13)
[2020-09-16] MEDS: INSULIN REGULAR, HUMAN 100 UNIT/1 ML SQ SCH ×2 (07:30→11:30)
[2020-09-16 08:06] VITALS: BP 156/80
[2020-09-16 08:30] VITALS: BP 156/80
[2020-09-16] MEDS: POLYETHYLENE GLYCOL 3350 17 GM PACK PO SCH (09:00)
[2020-09-16 09:11] LABS: ANION GAP 15.9 mmol/L (8-16); CREATININE, SERUM 2.29 mg/dL (0.72-1.25); POTASSIUM 3.9 mmol/L (3.5-5.1)
[2020-09-16] MEDS: CEFTRIAXONE 1 GM in SODIUM CHLORIDE 0.9% 50ML 50 ML IV SCH (11:00)
[2020-09-16] MEDS: DOCUSATE SODIUM 100 MG CAP PO SCH (11:00)
[2020-09-16] MEDS: PANTOPRAZOLE SOD 40 MG TABEC PO SCH (11:00)
[2020-09-16] MEDS: SODIUM CHLORIDE 1 GM TAB PO SCH (11:00)
[2020-09-16] MEDS: ATORVASTATIN 20 MG TAB PO SCH (11:00)
[2020-09-16 12:18] VITALS: BP 117/76
[2020-09-16] MEDS: BALSAM PERU/CASTOR OIL 60 GM OINT...G. TP SCH (12:41)
[2020-09-16] MEDS: COLLAGENASE 5 GM TUBE TP SCH (12:41)
[2020-09-16] MEDS ORDERED: FLOMAX0.4 MG PO (12:43)
== END 2020-09-16 13:38 | disposition home health service (06) | DRG 673 ==
LOC: ER 18:41 → ERHOLD 21:23 → MED/SURG2 23:35 → OBSVTOIN 09-06 16:35
PROVIDERS: ADMIT Internal Medicine; ATTEND Internal Medicine
PROC: 0JH63XZ Insertion of Tunneled Vascular Access Device into Chest Subcutaneous Tissue and Fascia, Percutaneous Approach (ICD-10-PCS; 2020-09-06)
PROC: 02PY33Z Removal of Infusion Device from Great Vessel, Percutaneous Approach (ICD-10-PCS; 2020-09-06)
PROC: 02H633Z Insertion of Infusion Device into Right Atrium, Percutaneous Approach (ICD-10-PCS; 2020-09-06)
PROC: 02HV33Z Insertion of Infusion Device into Superior Vena Cava, Percutaneous Approach (ICD-10-PCS; principal; 2020-09-10)
PROC: B548ZZA Ultrasonography of Superior Vena Cava, Guidance (ICD-10-PCS; 2020-09-10)
PROC: 5A1D70Z Performance of Urinary Filtration, Intermittent, Less than 6 Hours Per Day (ICD-10-PCS; 2020-09-10)
PROC: 5A1D70Z Performance of Urinary Filtration, Intermittent, Less than 6 Hours Per Day (ICD-10-PCS; 2020-09-11)
PROC: 5A1D70Z Performance of Urinary Filtration, Intermittent, Less than 6 Hours Per Day (ICD-10-PCS; 2020-09-13)
PROC: 02HV33Z Insertion of Infusion Device into Superior Vena Cava, Percutaneous Approach (ICD-10-PCS; 2020-09-15)
PROC: B548ZZA Ultrasonography of Superior Vena Cava, Guidance (ICD-10-PCS; 2020-09-15)
PROC: 5A1D70Z Performance of Urinary Filtration, Intermittent, Less than 6 Hours Per Day (ICD-10-PCS; 2020-09-15)
DX: I12.0 Hypertensive chronic kidney disease with stage 5 chronic kidney disease or end stage renal disease (principal); N18.6 End stage renal disease; U07.1 COVID-19; E87.1 Hypo-osmolality and hyponatremia; N17.9 Acute kidney failure, unspecified; C74.91 Malignant neoplasm of unspecified part of right adrenal gland; N39.0 Urinary tract infection, site not specified; E11.65 Type 2 diabetes mellitus with hyperglycemia; R60.1 Generalized edema; E11.22 Type 2 diabetes mellitus with diabetic chronic kidney disease; I25.10 Atherosclerotic heart disease of native coronary artery without angina pectoris; D63.8 Anemia in other chronic diseases classified elsewhere; R33.9 Retention of urine, unspecified; Z95.810 Presence of automatic (implantable) cardiac defibrillator; Z85.038 Personal history of other malignant neoplasm of large intestine; Z80.0 Family history of malignant neoplasm of digestive organs; Z82.5 Family history of asthma and other chronic lower respiratory diseases; F10.21 Alcohol dependence, in remission; E11.42 Type 2 diabetes mellitus with diabetic polyneuropathy; R53.81 Other malaise; E03.9 Hypothyroidism, unspecified; Z79.84 Long term (current) use of oral hypoglycemic drugs
CPT/HCPCS: 36415; 36556; 36558; 71045; 74178; 74470; 76705; 77001; 80048; 80053; 81001; 82530; 82550; 82553; 82607; 82746; 82948; 83036; 83735; 83880; 84100; 84439; 84443; 84484; 84585; 85025; 85610; 85730; 86705; 86706; 87086; 87186; 87340; 90962; 93005; 93925; 97139; 99152; 99153; 99251; 99284; C1752; C1769; C1892; G0378; J0360; J0690; J0696; J1644; J1940; J2001; J2150; J2250; J3010; J7030; J7040; J7050; J7799; Q9967; U0002

== ENCOUNTER → 2020-11-07 | Day surgery (SDC) | payer MEDICARE ==
[2020-11-02 10:28] LABS: BASOPHILS # (AUTO) 0.1 (0.0-0.1); BASOPHILS % 1.3 % (0.0-1.0); EOSINOPHILS # (AUTO) 0.5 (0.0-0.4); EOSINOPHILS % 7.2 % (0.0-6.0); HEMATOCRIT 36.6 % (38.2-49.6); HEMOGLOBIN 11.3 g/dL (14.0-18.0); LYMPHOCYTES # (AUTO) 1.1 (1.0-3.2); LYMPHOCYTES % 17.4 % (18.0-39.1); MEAN CORPUSCULAR HEMOGLOBIN 28.1 pg (28-32); MEAN CORPUSCULAR HGB CONC 30.9 g/dL (31-35); MONOCYTES # (AUTO) 0.7 (0.2-0.8); MONOCYTES % 11.5 % (4.4-11.3); NEUTROPHILS # (AUTO) 3.9 (2.1-6.9); NEUTROPHILS % 62.1 % (38.7-80.0); PLATELET COUNT 153 x10e3/uL (140-360); RED BLOOD COUNT 4.02 x10e6/uL (4.3-5.7); RED CELL DISTRIBUTION WIDTH 14.8 % (11.7-14.4)
[2020-11-02 10:49] LABS: ALBUMIN 3.2 g/dL (3.5-5.0); ALBUMIN/GLOBULIN RATIO 0.8 (0.8-2.0); ANION GAP 19.1 mmol/L (8-16); CALCIUM 9.1 mg/dL (8.4-10.2); CREATININE, SERUM 3.69 mg/dL (0.72-1.25); POTASSIUM 3.1 mmol/L (3.5-5.1)
[2020-11-07] VITALS (19 sets, daily range): BP systolic 100–142; BP diastolic 67–96
[~2020-11-07] VITALS: Ht 170.2 cm; Wt 74.8 kg
[~2020-11-07] MED LIST changes: +ALPRAZOLAM 0.5 MG TAB ONE; +ASPIRIN 325 MG TAB ONE; +BIVALRIUDIN 250 MG/VIAL VIAL IV ONE; +COLACE100 MG PO; +Collagenase TP; +DIPHENHYDRAMINE HCL 25 MG CAP ONE; +FENTANYL CITRATE/PF 100MCG/2 ML INJ ONE; +FLOMAX0.4 MG PO; +FUROSEMIDE40 MG PO; +HEPARIN SOD/SOD CHLORIDE 2,000 ML ONE; +IOPAMIDOL 370 MG/ML 200 ML INFUS..BTL INJ ONE; +LIDOCAINE HCL 2% LOCAL 20 ML VIAL ONE; +MIDAZOLAM HCL 2 MG/2 ML VIAL ONE; +PRASUGREL 10 MG TAB ONE; +SODIUM CHLORIDE 0.9% 1000ML 1,000 ML ONE; +SODIUM CHLORIDE 0.9% 50ML 50 ML ONE; +SODIUM CHLORIDE1 GM PO; +TYLENOL # 31 EA PO
== END | disposition home or self-care (01) ==
LOC: CATH LAB 11:33
PROVIDERS: ATTEND Internal Medicine Interventional Cardiology
DX: I25.119 Atherosclerotic heart disease of native coronary artery with unspecified angina pectoris (principal); I50.9 Heart failure, unspecified; I73.9 Peripheral vascular disease, unspecified; I83.029 Varicose veins of left lower extremity with ulcer of unspecified site; I83.019 Varicose veins of right lower extremity with ulcer of unspecified site; L97.919 Non-pressure chronic ulcer of unspecified part of right lower leg with unspecified severity; L97.929 Non-pressure chronic ulcer of unspecified part of left lower leg with unspecified severity; E78.00 Pure hypercholesterolemia, unspecified; E13.69 Other specified diabetes mellitus with other specified complication; Z79.84 Long term (current) use of oral hypoglycemic drugs; Z68.32 Body mass index [BMI] 32.0-32.9, adult
CPT/HCPCS: 93454; C9600; 36415; 76937; 80053; 85025; 92928; 99152; C1874; J0583; J2001; J2250; J3010; J7030; Q9967